=== PATIENT | female | born 1950 | race American Indian/Alaskan Native ===

== ENCOUNTER → 2018-08-20 12:51 | Outpatient (CLI) | payer MEDICARE, MEDICAID, SELFPAY | PROVIDERS: PCP Physician Assistant; Visit Provider Physician Assistant | DX: Z13.820 Encounter for screening for osteoporosis (principal); M81.0 Age-related osteoporosis without current pathological fracture; Z78.0 Asymptomatic menopausal state; E11.9 Type 2 diabetes mellitus without complications; Z82.62 Family history of osteoporosis; Z87.891 Personal history of nicotine dependence | CPT/HCPCS: 77080 ==

== ENCOUNTER → 2023-10-22 08:54 | Outpatient (CLI) | payer MEDICARE, MEDICAID, SELFPAY ==
--- NOTE | 2023-10-22 08:58 | DI.RAD.S_ITS ---
PROCEDURE: XR LUMBAR SPINE 2-3V INDICATIONS: LOW BACK PAIN TECHNIQUE: 3 views of the lumbar spine were acquired. COMPARISON: None. FINDINGS: Bones: 5 [id number] vertebrae are present. There is 8 mm anterolisthesis of L4 on L5. Loss of disc height, degenerative endplate changes and bilateral facet arthrosis throughout lumbar spine is seen more notably at L3-4 through L5-S1 levels. No vertebral body compression fractures. No suspicious bony lesions. Soft tissues: Overlying bowel gas pattern is normal. No suspicious soft tissue calcifications. IMPRESSION: [id number] degenerative disc disease throughout lumbar spine. No gross acute compression fracture . Grade 1 8 mm anterolisthesis of L4 on L5. Dictated by: David Meredith M.D. on 10/22/2023 at 10:47 Approved by: David Meredith M.D. on 10/22/2023 at 10:48
--- NOTE | 2023-10-22 08:58 | DI.RAD.S_ITS ---
PROCEDURE: XR HIP W PEL IF DONE RT 2V INDICATIONS: RT HIP PAIN TECHNIQUE: AP pelvis with lateral view(s) of the right hip(s). COMPARISON: None. FINDINGS: Bones: No fractures or dislocations. Moderate right hip joint osteoarthritic changes are seen. No evidence of avascular necrosis of femoral head. Pelvic ring appears intact. No suspicious bony lesions. Soft tissues: The visualized bowel gas pattern is normal. No suspicious soft tissue calcifications. IMPRESSION: Moderate right worse than left bilateral hip joint osteoarthritis. No fracture or dislocation. No evidence of avascular necrosis. Dictated by: David Meredith M.D. on 10/22/2023 at 10:48 Approved by: David Meredith M.D. on 10/22/2023 at 10:49
== END ==
PROVIDERS: PCP Physician Assistant; Referring Provider Student in an Organized Health Care Education/Training Program; Visit Provider Student in an Organized Health Care Education/Training Program
DX: M51.16 Intervertebral disc disorders with radiculopathy, lumbar region (principal); M43.16 Spondylolisthesis, lumbar region; M47.26 Other spondylosis with radiculopathy, lumbar region; M47.27 Other spondylosis with radiculopathy, lumbosacral region
CPT/HCPCS: 72100; 73502

== ENCOUNTER → 2024-11-10 15:07 | Outpatient (CLI) | payer MEDICARE, MEDICAID, SELFPAY ==
--- NOTE | 2024-11-10 15:09 | DI.RAD.S_ITS ---
PROCEDURE: XR CHEST 2V INDICATIONS: CHEST PAIN TECHNIQUE: 2 views of the chest were acquired. COMPARISON: None. FINDINGS: Heart, mediastinum and pulmonary vascular: Heart is normal in size and configuration. Mediastinum is unremarkable. Pulmonary vascular is normal. Lungs: Mild patchy bibasilar airspace disease either represents atelectasis or developing infiltrate. Pleural spaces: Normal-no effusions or pneumothorax. IMPRESSION: Atelectasis versus developing infiltrate in both lower lobes. Consider short- term radiographic follow-up Dictated by: Robles Juarez M.D. on 11/11/2024 at 12:16 Approved by: Robles Juarez M.D. on 11/11/2024 at 12:17
== END ==
PROVIDERS: PCP Physician Assistant; Referring Provider Physician Assistant; Visit Provider Family Medicine
DX: R06.09 Other forms of dyspnea (principal)
CPT/HCPCS: 71046

== ENCOUNTER 2024-11-21 16:27 | Emergency (ER) | payer MEDICARE, MEDICAID, SELFPAY ==
[2024-11-21] VITALS (11 sets, daily range): BP systolic 152–166; BP diastolic 65–73; PULSE 56–68; RESP 16–22; TEMP 36.6; O2SAT 92–95; BMI 37.8
--- NOTE | 2024-11-21 17:00 | PC.NURSE ---
Patient here in department for SOB and lower extremity swelling. Patient has bilateral pitting edema in both legs, no hx of CHF but hx of asthma. Patient is audibly wheezing in room, RT called to do eval and treat.
[2024-11-21] MEDS: ALBUTEROL/IPRATROPIUM 3 ML AMPUL INH (17:16)
--- NOTE | 2024-11-21 17:30 | DI.RAD.S_ITS ---
PROCEDURE: XR CHEST 1V INDICATIONS: Shortness of breath TECHNIQUE: One view of the chest was acquired. COMPARISON: [facility], CR, XR CHEST 2V, 11/10/2024, 15:21. FINDINGS: Surgical changes and devices: None. Lungs and pleura: Lungs are clear. No pleural effusions or pneumothorax. Mediastinum: Mediastinal contours appear normal. Heart size is normal. Bones and chest wall: No suspicious bony lesions. Overlying soft tissues appear unremarkable. IMPRESSION: No acute cardiopulmonary abnormality is seen. Dictated by: Caitie Victor M.D. on 11/21/2024 at 17:21 Approved by: Caitie Victor M.D. on 11/21/2024 at 17:21
--- NOTE | 2024-11-21 17:30 | EKG_ITS ---
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
[2024-11-21 17:38] LABS: Add Manual Diff / Slide Review NO; Hematocrit 34.0 % (36-46); Hemoglobin 11.0 g/dL (12.0-16.0); Lymphocytes Absolute Auto 1700 /uL (1100-4500); Mean Corpuscular HGB Conc 32.5 % (30-36); Mean Corpuscular Hemoglobin 26.1 PG (26-34); Mean Corpuscular Volume 80.6 fL (80-100); Platelet Count 283 X10^3/uL (150-400)
[2024-11-21 17:39] LABS: INR 1.0 (0.9-1.3); Prothrombin Time 11.0 SECONDS (9.4-12.5)
[2024-11-21 17:44] LABS: Alanine Aminotransferase 26 IU/L (<35); Albumin 3.9 g/dL (3.5-5.0); Albumin Globulin Ratio 1.1 (1.0-2.8); Alkaline Phosphatase 142 U/L (38-126); Blood Urea Nitrogen 39 mg/dL (7-17); Calcium 8.0 mg/dL (8.4-10.2); Carbon Dioxide 27 mmol/L (22-32); Chloride 105 mmol/L (98-107); Estimated Glomerular Filt Rate 33 mL/min (>60); Globulin 3.5 g/dL (1.7-4.1); Glucose 141 mg/dL (70-99); HEMOLYSIS < 15 (0-50); Lactate (Lactic Acid) 0.9 mmol/L (0.7-2.1); Potassium 4.9 mmol/L (3.4-5.1); Sodium 138 mmol/L (137-145); Total Protein 7.4 g/dL (6.3-8.2)
[2024-11-21 17:56] LABS: NT-proBNP (BNP-Adult 18+) 1540 pg/mL (<125); Troponin I < 0.012 ng/mL (0.01-0.034)
--- NOTE | 2024-11-21 19:08 | ED_ITS ---
HPI - General Adult General Chief complaint: Shortness of Breath/Dyspnea Stated complaint: SOB, swollen legs Time Seen by Provider: 11/21/24 18:11 Mode of arrival: Ambulatory History of Present Illness HPI narrative: 74-year-old woman with a history of hypertension, hyperlipidemia, type 2 diabetes, 30-40 pack year history of smoking, abdominal obesity presents today complaining of increasing shortness of breath and lower extremity edema. She notes that she recently stopped her Jardiance and is supposed to start him on jaw but has not yet done so. He is not complaining of chest pain, minor exertional dyspnea only, no orthopnea, no recent fevers cough or chills Related Data Home Medications ?Medication ?Instructions ?Recorded ?Confirmed ASPIRIN CHEW - 81 mg PO Q DAY ##0 7 (ASPIRIN) Citalopram Hydrobromide 0 PO PRN ##0 11/23/06 (Citalopram HBr) Metformin Hydrochloride 500 mg PO HS ##0 11/23/06 (Glucophage) [MICARDIS] 40 mg Q DAY ##0 11/23/06 [QVAR] 1 spray Q DAY ##0 11/23/06 DICLOFENAC SODIUM/MISOPROSTOL 0 PO * UK DOSE/FREQUENCY ##0 02/21/07 (Arthrotec 75 MG-200 Mcg Tab) Insulin Human Regular (Humulin R / 0 SQ * UK DOSE/FREQ UENCY ##0 02/21/07 Novolin R) Previous Rx's ?Medication ?Instructions ?Recorded furosemide 20 mg tablet 20 mg PO DAILY #20 tabs 11/03 01/28 Allergies Allergy/AdvReac Type Severity Reaction Status Date / Time gabapentin Allergy Verified 11/21/24 16:33 Penicillins Allergy Verified 11/21/24 16:33 Review of Systems Review of Systems Narrative: Pertinent positive and negative findings as per HPI Patient History Medical History (Updated 11/21/24 @ 19:35 by Chelsie Jorge MD) Hyperlipidemia Hypertension Diabetes Exam Initial Vital Signs Initial Vital Signs: Vital Signs Temperature 97.9 F 11/21/24 16:28 Pulse Rate 65 11/21/24 16:28 Respiratory Rate 16 11/21/24 16:28 Blood Pressure 156/65 H 11/21/24 16:28 Pulse Oximetry 93 11/21/24 16:28 Oxygen Delivery Method Room Air 11/21/24 16:28 General: Healthy appearing, in no acute distress. Able to give a complete and coherent history. Well-nourished well-developed HEENT: Moist mucous membranes, normal sclera with reactive pupils, Neck: No JVD, Respiratory: Lungs are clear to auscultation, no wheezing no rales no rhonchi. Full and symmetrical air movement Cardiac: Regular rate and rhythm no murmurs Abdomen: Soft, nontender, no rebound or guarding, no flank pain Skin: Warm and dry, no rashes Neurologic: Grossly neurologically intact with no obvious asymmetries or abnormalities Extremities: No trauma, well perfused, no pitting edema, no chronic venous stasis changes Psych: Cooperative, appropriate insight and affect Course Orders Ordered: ED Orders 11/21/24 16:40 Complete Blood Count AUTO DIFF Stat Comprehensive Metabolic Panel Stat Lactate (Lactic Acid) Stat NT-proBNP (BNP-Adult 18+) Stat Prothrombin Time INR Stat Troponin I Stat 11/21/24 17:30 XR chest 1V Stat EKG-12 Lead Stat Measure peak expiratory flow STAT RT Consult Eval and Treat STAT Discontinued Medications Albuterol/Ipratropium (Albuterol/Ipratropium 3 Ml Ampul) 3 ml INH NOW ONE Stop: 11/21/24 17:16 Last Admin: 11/21/24 17:16 Dose: 3 ml Documented By: SAT Vital Signs Vital signs: Vital Signs - 8 hr 11/21/24 16:28 11/21/24 16:49 11/21/24 16:50 Temperature 97.9 F Pulse Rate 65 68 64 Respiratory Rate 16 22 18 Blood Pressure 156/65 H Pulse Oximetry 93 92 93 Oxygen Delivery Method Room Air Room Air 11/21/24 16:50 11/21/24 17:21 Temperature Pulse Rate 62 Respiratory Rate 20 Blood Pressure 152/72 H Pulse Oximetry 95 Oxygen Delivery Method Room Air Medical Decision Making Lab Data 11/21/24 16:40 11/21/24 16:40 Labs: Lab Results 11/21/24 Range/Units 16:40 WBC 8.5 (4.5-11.0) X10^3/uL RBC 4.23 (4.0-5.2) X10^6/uL Hgb 11.0 L (12.0-16.0) g/dL Hct 34.0 L (36-46) % MCV 80.6 (80-100) fL MCH 26.1 (26-34) PG MCHC 32.5 (30-36) % RDW 16.1 H (11.6-14.8) % Plt Count 283 (150-400) X10^3/uL Neut % (Auto) 72.6 (50-75) % Lymph % (Auto) 19.9 L (25-40) % [place] % (Auto) 5.9 (3-14) % Eos % (Auto) 1.1 L (2-4) % Baso % (Auto) 0.5 (0-2) % Neut # (Auto) 6200 (2350-1887) /uL Lymph # (Auto) 1700 (4943-5319) /uL [place] # (Auto) 500 (0-900) /uL Eos # (Auto) 100 (0-450) /uL Baso # (Auto) 0 (0-100) /uL PT 11.0 (9.4-12.5) SECONDS INR 1.0 (0.9-1.3) Sodium 138 (137-145) mmol/L Potassium 4.9 (3.4-5.1) mmol/L Chloride 105 (98-107) mmol/L Carbon Dioxide 27 (22-32) mmol/L BUN 39 H (7-17) mg/dL Creatinine 1.63 H (0.52-1.04) mg/dL Estimated GFR 33 L (>60) mL/min BUN/Creatinine Ratio 23.9 H (6-22) Glucose 141 H (70-99) mg/dL Lactate 0.9 (0.7-2.1) mmol/L Calcium 8.0 L (8.4-10.2) mg/dL Total Bilirubin 0.6 (0.2-1.3) mg/dL AST 47 H (14-36) IU/L ALT 26 (<35) IU/L Alkaline Phosphatase 142 H (38-126) U/L Troponin I < 0.012 (0.01-0.034) ng/mL NT-Pro-B Natriuret Pep 1540 H (<125) pg/mL Total Protein 7.4 (6.3-8.2) g/dL Albumin 3.9 (3.5-5.0) g/dL Globulin 3.5 (1.7-4.1) g/dL Albumin/Globulin Ratio 1.1 (1.0-2.8) MDM Narrative Medical decision making narrative: CC: Dyspnea, lower extremity Complicating co-morbidities: Hypertension, hyperlipidemia, diabetes Data collected from: patient Social determinants of health that may influence the patients condition: In looking at records from [facility] she has multiple canceled appointments for nuclear medicine study, scheduled at least 5 times and never done, echocardiogram scheduled 5 x 1 no show all the others canceled Medical records reviewed: No medical records immediately available through our [facility] system. She was seen once by Dr. Johnson, cardiology [facility] with recommendations for follow up echocardiogram and MIBI study. It does not not look like those studies were done at either [facility] or [facility] Differential considered: Adjustment to medication with the change from Januvia to Mounjaro, congestive heart failure, liver failure, kidney failure Exam documented above, pertinent findings include: Exam is fairly benign, she does not have JVD, basilar crackles, significant pitting edema. Lab Test results independently reviewed as above. Pertinent findings: CBC is unremarkable Chemistries show a creatinine at 1.63 which is a significant change from comparison in 2017 BNP is slightly elevated at 1540 Troponin is undetected Independently reviewed EKG: Sinus bradycardia at a rate of 53, right bundle branch block that had been mentioned in consult note from last year, no acute ischemic change Imaging studies independently reviewed: Chest x-ray today is unremarkable. Does look like she had a chest x-ray ordered by her primary care physician earlier this month for an indication of chest pain that is suggested developing infiltrate in both lower lobes, that has since resolved Treatments: 40 mg of IV furosemide Discussion: 74-year-old woman with complaints of mild dyspnea and lower extremity edema. She is not describing any chest pain. Her workup is actually quite reassuring in terms of cardiac findings. Slight sinus bradycardia at rate of 53 on her EKG but telemetry throughout her ER stay is had her in 60s for the most part. No evidence of infection, acute coronary syndrome, severe anemia. She does have a slight bump in her creatinine at 1.63 with a GFR of 33 however I do not know if that is new or old. She is not hypoxic, tachypneic, no wheezing. Minor lower extremity edema without any pitting. I have given her 40 mg of IV furosemide, we will suggest 20 mg of Lasix to continue daily until she sees her primary care doctor with the appointment already scheduled on November 26. With her current renal function potassium at 5.9 we will not prescribe additional potassium supplementation with the Lasix. Reviewed findings with her and reasons to continue the diuretic along with anticipated significant increase in urination. She would benefit from an echocardiogram and given the EKG showing a rate of 53 a Zio patch to see if she is having episodes of bradycardia that might be contributing to this minor bit of heart failure may be appropriate as well. At this point there was no indication for hospitalization, outpatient follow up has already been arranged, questions are answered patient is discharged home Discharge Plan Departure Patient Disposition: Home Clinical Impression: Chronic kidney disease Qualifiers: Chronic kidney disease stage: unspecified stage Qualified Code(s): N18.9 - Chronic kidney disease, unspecified Fluid overload Qualifiers: Hypervolemia type: other Qualified Code(s): E87.79 - Other fluid overload Instructions: DI for Heart Failure Activity Restrictions/Additional Instructions: Thank you for coming in today I believe that you have a bit of fluid collecting in the very bases of your lungs and in your legs which is causing your symptoms. Your lab work suggests minor amount of heart failure. I have given you some written information on what heart failure is. To better diagnosis, you do need to have an echocardiogram. When you came in, your heart rate was rather low at 52. If you are having long episodes of area of heart rate, this could be causing some of your symptoms. Please discuss this with your primary care doctor. They may consider outpatient heart rate monitoring or additional medication changes In the meantime, I gave you furosemide through your IV, this should make you go to the bathroom ALOT this evening. I have also given you a prescription for 20 mg of furosemide to take a pill every morning for the next 2 weeks or until you have further discuss this with your primary care physician If you find that you are getting worse or develop any new symptoms, please feel free to return to the emergency department for further evaluation. Prescriptions: New furosemide 20 mg tablet 20 mg PO DAILY Qty: 20 0RF No Action [MICARDIS] 40 mg Q DAY Qty: 0 [QVAR] 1 spray Q DAY Qty: 0 ASPIRIN CHEW - (ASPIRIN) 81 mg PO Q DAY Qty: 0 Citalopram Hydrobromide (Citalopram HBr) 0 PO PRN Qty: 0 Metformin Hydrochloride (Glucophage) 500 mg PO HS Qty: 0 Insulin Human Regular (Humulin R / Novolin R) 0 SQ * UK DOSE/FREQUENCY Qty: 0 DICLOFENAC SODIUM/MISOPROSTOL (Arthrotec 75 MG-200 Mcg Tab) 0 PO * UK DOSE/FREQUENCY Qty: 0 Referrals: Ilana Ellington PA-C [Primary Care Provider, Internal Medicine] Stand Alone Forms: Patient Portal/API
== END 2024-11-21 19:38 | disposition home or self-care (01) ==
PROVIDERS: Family Medicine; Emergency Provider Emergency Medicine; PCP Physician Assistant
DX: N18.9 Chronic kidney disease, unspecified (principal); E87.79 Other fluid overload
CPT/HCPCS: 36415; 71045; 80053; 83605; 83880; 84484; 85025; 85610; 93005; 94640; 99284

== ENCOUNTER → 2025-03-11 13:23 | Outpatient (CLI) | payer MEDICARE, MEDICAID, SELFPAY | PROVIDERS: PCP Family Medicine; Referring Provider Family Medicine; Visit Provider Family Medicine | DX: I07.1 Rheumatic tricuspid insufficiency (principal); R06.09 Other forms of dyspnea | CPT/HCPCS: 93306 ==